=== PATIENT | female | born 1940 | race Caucasian/White ===

== ENCOUNTER → 2016-06-29 | Outpatient (CLI) | payer MEDICARE ==
[~2016-06-29] MED LIST: ASP81CT PO; BISO1TAB8 PO; DOXY100C2 PO; ETOD400T PO; GBPN100C PO; LISI5TAB PO; LVT.05T PO; SIMV20TA3 PO; TRAM50TA2 PO
--- NOTE | 2016-06-29 13:59 | Diagnostic Imaging Report ---
EXAMINATION: DEXA scan. INDICATION: Osteopenia TECHNIQUE: Bone mineral density estimated based on dual energy radiography over the lumbar spine and femoral necks, was performed. FINDINGS: The lumbar spine T-score is -0.4. This is 3.8% decreased density measurement compared to 07/02/2014. T score over the right femoral neck is 1.8 and on the left side is -1.2. This is 3.3% decreased density measurement compared to 07/02/2014. IMPRESSION: Osteopenia based on left femoral neck measurement. The right femoral neck measurement is probably exaggerated, as well as the lumbar spine measurement based on adjacent degenerative sclerotic changes.. Dictated by: Dictated on workstation # [id number]
== END ==
LOC: RAD 10:19
PROVIDERS: ATTEND Physician Assistant
DX: M85.88 Other specified disorders of bone density and structure, other site (principal)
CPT/HCPCS: 77080

== ENCOUNTER → 2016-07-06 | Outpatient (REF) ==
--- NOTE | 2016-07-06 15:10 | Diagnostic Imaging Report ---
INDICATION: Fell today bruising to the thumb. FINDINGS: Three views of the left hand demonstrate no fracture or dislocation. Mild degenerative changes are present. IMPRESSION: There are no acute findings. Dictated by: Dictated on workstation # [id number]
--- NOTE | 2016-07-06 15:12 | Diagnostic Imaging Report ---
INDICATION: Fell today, landed on left hip, bruising. FINDINGS: Two views of the left femur demonstrate no fracture or dislocation. IMPRESSION: Negative left femur. Dictated by: Dictated on workstation # [id number]
--- NOTE | 2016-07-06 15:13 | Diagnostic Imaging Report ---
INDICATION: Fell today landing on left hip, bruising. FINDINGS: Two views of the left hip demonstrate no fracture or dislocation. Small osteophytes are present. IMPRESSION: There are mild degenerative changes of the left hip with no acute findings. Dictated by: Dictated on workstation # [id number]
== END | disposition home or self-care (01) ==
LOC: EDSEX → OCC 14:44 → MERGE 14:44
PROVIDERS: ATTEND Nurse Practitioner Family
CPT/HCPCS: 73130; 73502; 73552

== ENCOUNTER → 2016-07-17 | Outpatient (REF) ==
--- NOTE | 2016-07-17 16:04 | Diagnostic Imaging Report ---
PROCEDURE: MRI left upper extremity without contrast. TECHNIQUE: Multiplanar, multisequence non contrast-enhanced MRI of the left upper extremity was accomplished. INDICATION: Fall. FINDINGS: There is a nondisplaced fracture along the radial and dorsal aspects of the proximal phalanx of the left thumb. The fracture line is in a vertical orientation and extends to the articular surface. There is no subluxation or dislocation. There is bone marrow edema seen in the ulnar aspect of the base of the proximal phalanx without a fracture line identified. Mild contusion in the metacarpal bone of the thumb is seen with some of the signal probably exaggerated by poor fat suppression with no actual fracture line identified. There is suggestion of detachment with full-thickness tear of the ulnar collateral ligament at the MCP joint. There is displacement of the ligament seen on coronal images from the attachment site by about 2 mm. A Stener's lesion is not excluded. There is no ligament injury identified of the radial aspect. Soft tissue contusion around the metacarpal bone and soft tissue edema is seen. The rest of the visualized joints and tendons in the proximal aspect of the hand appear unremarkable. IMPRESSION: 1. Nondisplaced intra-articular vertical fracture involving the dorsal and radial aspect of the base of the proximal phalanx of the left thumb. 2. Full-thickness tear with mild retraction involving the proximal attachment of the ulnar collateral ligament of the MCP joint. This is by about 2 mm from the attachment point. A Stener's lesion is not excluded. Evaluation by hand specialist is recommended. The findings were discussed with nurse practitioner taking care of the patient, Ms. Caitlyn Sharp, by Dr. Ulrich at time of dictation. Dictated by: Dictated on workstation # [id number]
== END | disposition home or self-care (01) ==
LOC: OCC 13:48
PROVIDERS: ATTEND Nurse Practitioner Family
CPT/HCPCS: 73218

== ENCOUNTER → 2017-04-04 | Outpatient (CLI) | payer MEDICARE ==
--- NOTE | 2017-04-04 10:21 | Diagnostic Imaging Report ---
EXAMINATION: Bilateral screening mammogram 2D views with tomosynthesis. The current study was also evaluated with a Computer Aided Detection (CAD) system. INDICATION: Screening. PERSONAL HISTORY: No current complaints stated on the questionnaire. COMPARISON: 03/20/2016. FINDINGS: The breasts are composed of scattered fibroglandular densities. Allowing for technique and positional differences, no suspicious change is seen. IMPRESSION: No significant change. ACR BI-RADS Category 2: Benign findings. Result letter will be mailed to the patient. Note: At least 10% of breast cancer is not imaged by mammography. Dictated by: Dictated on workstation # [id number]
== END ==
LOC: RAD 07:36
PROVIDERS: ATTEND Family Medicine
DX: Z12.31 Encounter for screening mammogram for malignant neoplasm of breast (principal)
CPT/HCPCS: 77067

== ENCOUNTER → 2018-07-09 | Outpatient (CLI) | payer MEDICARE ==
--- NOTE | 2018-07-10 13:08 | Diagnostic Imaging Report ---
INDICATION: Routine screening. COMPARISON: 04/04/2017 and 03/20/2016. TECHNIQUE: 2D and 3D bilateral screening mammography was performed with CAD. FINDINGS: Scattered fibroglandular densities are identified bilaterally. The parenchymal pattern is stable. No mass or malignant appearing microcalcifications are seen. The axillae are unremarkable. IMPRESSION: No mammographic features suspicious for malignancy are identified. ACR BI-RADS Category 1: Negative. Result letter will be mailed to the patient. Note: At least 10% of breast cancer is not imaged by mammography. Dictated by: Dictated on workstation # [id number]
== END ==
LOC: RAD 13:54
PROVIDERS: ATTEND Obstetrics & Gynecology
DX: Z12.31 Encounter for screening mammogram for malignant neoplasm of breast (principal)
CPT/HCPCS: 77067

== ENCOUNTER → 2022-07-04 | Outpatient (CLI) | payer MEDICARE ==
--- NOTE | 2022-07-04 13:07 | Diagnostic Imaging Report ---
INDICATION: Postmenopausal state COMPARISON: 06/29/2016 FINDINGS: AP Spine L2-L4: [BMD (g/cm2): 1.146] [T-Score: -0.4] [Z-Score: 0.9] [BMD Previous: 1.154] [BMD % Change: -0.7] LT Hip Neck: [BMD (g/cm2): 0.871] [T-Score: -1.2] [Z-Score: 0.6] LT Hip Total: [BMD (g/cm2):0.888] [T-Score:-1.0] [Z-Score: 0.7] [BMD Previous: 0.859] [BMD % Change: 3.4] RT Hip Neck: [BMD (g/cm2):1.082] [T-Score:0.3] [Z-Score:2.2] RT Hip Total: [BMD (g/cm2):1.284] [T-score:2.2] [Z-Score:3.9] [BMD Previous:1.232] [BMD % Change:4.2*]* *Indicates significant change from prior examination based on 95% confidence level. World Health Organization criteria for BMD interpretation classify patients as Normal (T-score at or above -1.0), Osteopenic (T-score between -1.0 and -2.5) or Osteoporotic (T-score at or below -2.5). LIMITATIONS AND MODIFICATION: None. FRACTURE RISK (FRAX SCORE): The ten year probability of (%): Major Osteoporotic Fracture: [18.3] Hip Fracture: [3.5] IMPRESSION: 1. Osteopenia (Low bone mass). 2. Bone mineral density within the right hip has significantly increased since the prior examination. Bone mineral density within the lumbar spine has not significantly changed from the prior exam. 3. See below National Osteoporosis Foundation guidelines on when to potentially initiate pharmacologic therapy. Based on the National Osteoporosis Foundation Guidelines, pharmacologic treatment should be initiated in any of the following, unless clinical conditions suggest otherwise: * Any patient with prior fragility fracture of the hip or vertebrae. A spine fracture indicates 5X risk for subsequent spine fracture and 2X risk for subsequent hip fracture. * Osteoporosis (T-score <-2.5). * Postmenopausal women and men age 50 and older with low bone mass/osteopenia (T-score between -1.0 and -2.5) by DXA and 10-year major osteoporotic fracture greater than 20% or a 10-year probability of hip fracture greater than 3%. These fracture risks are supplied above in the FRAX score, if applicable. * Clinician judgement and/or patient preferences may indicate treatment for people with 10-year fracture probabilities above or below these levels. Dictated by: Dictated on workstation # [id number]
== END ==
LOC: RAD 09:02
PROVIDERS: ATTEND Family Medicine
DX: M85.80 Other specified disorders of bone density and structure, unspecified site (principal); M81.0 Age-related osteoporosis without current pathological fracture
CPT/HCPCS: 77080